=== PATIENT | female | born 1995 | race Caucasian/White ===

== ENCOUNTER 2019-06-24 05:04 | Day surgery (SDC) | payer OTHER ==
[2019-06-23 14:19] VITALS: BMI 28.5
[2019-06-24] MEDS ORDERED: PROPOFOL 20 ML ONE (08:13)
[2019-06-24] MEDS ORDERED: MIDAZOLAM HCL 2 MG/2 ML SINGLE DOSE VIAL ONE ×2 (08:13)
--- NOTE | 2019-06-24 09:20 | HP ---
History & Physical Update - Physical Physical: No Change - Assessment Assessment: No Change - Plan Plan: No Change (H&P reviwed , no changes , for hysteroscopy , D&C , polypectomy )
[2019-06-24] MEDS ORDERED: IBUPROFEN 600 MG TABLET (FP) PO PRN (10:09)
[2019-06-24] MEDS ORDERED: oxyCODONE HCL 5 MG TABLET PO PRN ×2 (10:09→10:40)
[2019-06-24] MEDS ORDERED: IBUPROFEN 800 MG/8 ML IJ IVPB PRN (10:09)
[2019-06-24] MEDS ORDERED: ONDANSETRON 4 MG/2 ML VIAL IVPUSH PRN ×2 (10:09→10:40)
[2019-06-24] MEDS ORDERED: ELECTROLYTE-148 SOLN 1,000 ML IV SCH (10:15)
--- NOTE | 2019-06-24 10:15 | OP ---
Operative Note - Note: Operative Date: 06/24/19 Pre-Operative Diagnosis: EM polyp, r/o submucos myoms Operation: hysteroscopy, EM polypectomy Findings: 2 small submucos myoma, small EM polyp Surgeon: Ted Puentes Anesthesia: General Estimated Blood Loss (mls): 25 Blood Volume Replaced (mls): 0 Operative Report Dictated: Yes
[2019-06-24] MEDS ORDERED: LACTATED RINGERS SOLUTION 1,000 ML IV SCH (10:45)
[2019-06-24 11:13] VITALS: TEMP 98.1
--- NOTE | 2019-06-24 12:32 | OP ---
DATE OF OPERATION: 06/24/2019 PREOPERATIVE DIAGNOSIS: Endometrial polyp, rule out submucous myoma. POSTOPERATIVE DIAGNOSIS: Submucous myoma. SURGEON: Ted Puentes MD ANESTHESIA: General. ESTIMATED BLOOD LOSS: 25 mL. PROCEDURE: Hysteroscopy, dilation and curettage. DESCRIPTION OF PROCEDURE: Patient was taken to the operating room. Under adequate general anesthesia in dorsal lithotomy position, examination under anesthesia revealed external genitalia to be normal. Vagina was normal. Cervix was clean. No lesion. Uterus was normal size, retroverted. Adnexa, no masses were palpable. Then with a weighted speculum in the vagina, anterior lip of the cervix was grasped with a single-tooth tenaculum. Cervix was grasped with a single-tooth tenaculum, and cervix was slightly dilated to 5 mm. Then hysteroscope was introduced. Visualization of endometrial cavity appeared to be normal. There was a small polyp at the lower uterine segment, but there are 2 fibroids seen at the fundal area of the uterus each about 2 cm. The base of the fibroids are into the wall of the uterus. Both cornual regions were identified. The endometrium appeared to be normal except for the lower uterine segment posteriorly, which showed some small polyp. No other abnormality was noted. The hysteroscope was withdrawn, and endometrium was gently curetted with a smooth curette. Patient tolerated the procedure well, left the OR in good condition. TED PUENTES M.D. /[id number]
[2019-06-24 12:42] VITALS: BP 112/57; PULSE 65
--- NOTE | 2019-06-25 16:17 | PATH ---
Surgical Pathology Report Patient Name: KVNG BARRAGAN [facility]. Rec. #: [id number] /Age/Gender: 1995 (Age: 24) / F Account: [id number] Location: [facility] Taken: 06/24/2019 Received: 06/24/2019 Reported: 06/25/2019 Physicians: Ted Puentes M.D. Specimen(s) Received ENDOMETRIAL CURETTINGS AND POLYPS Clinical History Endometrial polyp Final Diagnosis ENDOMETRIAL CURETTING AND ENDOMETRIAL POLYP: ENDOMETRIAL POLYPS. SEPARATE FRAGMENTS OF SECRETORY TYPE ENDOMETRIUM. SEPARATE ENDOCERVICAL TISSUE WITH SQUAMOUS METAPLASIA. Electronically Signed Cosme Jones M.D. Gross Description Received in formalin labeled "endometrial curetting, endometrial polyp," is a 3.7 x 2.5 x 0.3 cm aggregate of navarro-brown soft tissue fragments. The formalin is filtered and the specimen is entirely submitted in 2 cassettes. /06/24/2019 saudi/06/24/2019
== END 2019-06-24 12:35 | disposition home or self-care (01) ==
LOC: JASU-SURG 05:04
PROVIDERS: ATTEND Obstetrics & Gynecology
PROC: 0UDB7ZX Extraction of Endometrium, Via Natural or Artificial Opening, Diagnostic (ICD-10-PCS; principal; 2019-06-24 09:00)
PROC: 0UJD8ZZ Inspection of Uterus and Cervix, Via Natural or Artificial Opening Endoscopic (ICD-10-PCS; 2019-06-24 09:00)
DX: N84.0 Polyp of corpus uteri (principal); D25.9 Leiomyoma of uterus, unspecified; N87.9 Dysplasia of cervix uteri, unspecified
CPT/HCPCS: 88305-TC; 94760